=== PATIENT | female | born 1945 | race Caucasian/White ===

== ENCOUNTER 2017-08-08 21:09 | Emergency (ER) | payer OTHER ==
--- NOTE | 2017-08-08 22:03 | RAD REPORT ---
EXAM DESCRIPTION: CT - CTHCSPWOC - 08/08/2017 9:53 pm CLINICAL HISTORY: Trauma, head and neck injury. COMPARISON: None. TECHNIQUE: Axial 5 mm thick images of the head were obtained. Axial 2 mm thick images of the cervical spine were obtained with sagittal and coronal reconstruction images generated and reviewed. All CT scans are performed using dose optimization technique as appropriate and may include automated exposure control or mA/KV adjustment according to patient size. FINDINGS: CT HEAD WITHOUT CONTRAST: No acute hemorrhage, hydrocephalus or extra-axial collection is identified.No areas of brain edema or midline shift. The paranasal sinuses and mastoids are clear.The calvarium is intact. CT CERVICAL SPINE WITHOUT CONTRAST: No fracture or subluxation.3 mm degenerative anterolisthesis noted of C5 on 6.No prevertebral soft ti ssues swelling is identified. Left carotid bulb calcification. IMPRESSION: No acute intracranial or cervical spine findings. Moderate lower cervical degenerative change.
--- NOTE | 2017-08-08 22:23 | RAD REPORT ---
EXAM DESCRIPTION: RAD - Shoulder Left 2 View - 08/08/2017 10:17 pm CLINICAL HISTORY: Fall, shoulder pain COMPARISON: None. FINDINGS: Mildly impacted fracture the proximal left humerus is seen. No dislocation evident.
--- NOTE | 2017-08-08 22:31 | ER ---
Nurse's Notes [facility] Name: Ally Patterson Age: 71 yrs Sex: Female : 1945 Arrival Date: 08/08/2017 Time: 21:13 Bed 4 Private MD: Edgardo Aragon Diagnosis: 2-part nondisplaced fracture of surgical neck of left humerus;Contusion of left eyelid and periocular area Presentation: 08/08 21:14 Presenting complaint: Patient states: Tripped over vacuum at 1730, hitting shoulder and aj left eyebrow on floor. Reports pain 10/10 to shoulder. 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 Care prior to arrival: None. Mechanism of Injury: Fall from standing position. Trauma event details: Injury occurred in the [facility], Injury occurred: at home. Injury occurred: August 08, 2017 Injury occurred at: 17:30. 21:14 Acuity: DEEPAK 3 aj 21:14 Method Of Arrival: Ambulatory 21:19 Transition of care: patient was not received from another setting of care. Onset of symptoms was August 08, 2017. Initial Sepsis Screen: Does the patient meet any 2 criteria? RR > 20 per min. HR > 90 bpm. Yes Does the patient have a suspected source of infection? No. Patient's initial sepsis screen is negative. Historical: - Allergies: 21:20 Codeine; aj 21:20 promethazine HCl; aj - Home Meds: 21:20 Lexapro 10 mg Oral tab 1 tab once daily [Active]; omeprazole 20 mg Oral cpDR 1 cap once aj daily [Active]; losartan oral oral [Active]; - PMHx: 21:20 Tinajero's Esophagus; Depression; aj 22:32 Hypertension; gs - PSHx: 21:20 Hysterectomy; ; Cholecystectomy; Gastric Bypass; Bilateral knee replacement; aj Hernia repair; - Immunization history:: Adult Immunizations up to date. - Social history:: Smoking status: Patient/guardian denies using tobacco. Screenin:21 Abuse screen: Denies threats or abuse. Nutritional screening: No deficits noted. tl2 Tuberculosis screening: No symptoms or risk factors identified. Fall Risk Fall in past 12 months (25 points). Primary Survey: 21:16 A: Airway: patent. Breathing/Chest: Respiratory pattern: regular, Respiratory effort: aj spontaneous, unlabored, Breath sounds: clear, bilaterally. Chest inspection: symmetrical rise and fall of the chest. Circulation: Skin color: pink, Skin temperature: warm, dry. Disability Alert. Assessment: 21:14 General: Appears in no apparent distress. uncomfortable, Behavior is calm, cooperative, aj appropriate for age. 21:16 Pain: Complains of pain in anterior aspect of left shoulder. Neuro: Level of aj Consciousness is awake, alert, obeys commands, Oriented to person, place, time, situation, Appropriate for age. Respiratory: Airway is patent Respiratory effort is even, unlabored, Respiratory pattern is regular, symmetrical. Derm: Skin is intact, is healthy with good turgor, Skin is pink, warm \T\ dry. normal. Musculoskeletal: Circulation, motion, and sensation intact. Range of motion: limited in left shoulder Reports pain in anterior aspect of left shoulder. 21:21 General: Appears in no apparent distress. uncomfortable, Behavior is calm, cooperative, tl2 appropriate for age. Pain: Complains of pain in left shoulder. Neuro: Level of Consciousness is awake, alert, obeys commands, Oriented to person, place, time, situation. Cardiovascular: Denies chest pain. Respiratory: Airway is patent Respiratory effort is even, unlabored, Respiratory pattern is regular, symmetrical. GI: No signs and/or symptoms were reported involving the gastrointestinal system. : No signs and/or symptoms were reported regarding the genitourinary system. Derm: Skin is pink, warm \T\ dry. Bruising that is dark purple, on left eyebrow. Musculoskeletal: Circulation, motion, and sensation intact. Range of motion: limited in left shoulder possible dislocation in left shoulder. 22:10 Reassessment: Pt requested pain medication, MD denied because of ETOH on board. tl2 23:32 Reassessment: Patient appears in no apparent distress at this time. Patient and/or tl2 family updated on plan of care and expected duration. Pain level reassessed. Patient is alert, oriented x 3, equal unlabored respirations, skin warm/dry/pink. Pt verbalized understanding of discharge instructions, need for follow up. Vital Signs: 21:16 BP 177 / 100; Pulse 104; Resp 21; Temp 97.8; Pulse Ox 96% on R/A; Weight 94.35 kg; aj Height 5 ft. 1 in. (154.94 cm); Pain 10/10; 22:10 BP 144 / 88; Pulse 99; Resp 18; Pulse Ox 97% on R/A; tl2 22:37 BP 164 / 93; Pulse 87; Resp 18; Pulse Ox 97% on R/A; tl2 21:16 Body Mass Index 39.30 (94.35 kg, 154.94 cm) aj Cora Coma Score: 21:16 Eye Response: spontaneous(4). Verbal Response: oriented(5). Motor Response: obeys aj commands(6). Total: 15. Trauma Score (Adult): 21:16 Eye Response: spontaneous(1); Verbal Response: oriented(1); Motor Response: obeys aj commands(2); Systolic BP: > 89 mm Hg(4); Respiratory Rate: 10 to 29 per min(4); Cora Score: 15; Trauma Score: 12 ED Course: 21:13 Patient arrived in ED. rg2 21:14 Edgardo Aragon MD is Private Physician. rg2 21:16 Triage completed. aj 21:18 Brooke Gordillo, COLTON is Primary Nurse. tl2 21:20 Arm band placed on left wrist. Patient placed in an exam room. aj 21:21 Jefry Skinner MD is Attending Physician. gs 21:21 Patient has correct armband on for positive identification. Bed in low position. Call tl2 light in reach. Side rails up X2. Adult w/ patient. 21:53 CT Head C Spine In Process Unspecified. EDMS 21:56 CT completed. Patient tolerated procedure well. Patient moved to CT. Patient moved back nj from CT. 22:17 X-ray completed. Portable x-ray completed in exam room. Patient tolerated procedure kc2 well. 22:17 Shoulder Left (2 View) XRAY In Process Unspecified. EDMS 22:29 Aditya Pedro MD is Referral Physician. gs 23:32 No provider procedures requiring assistance completed. Patient did not have IV access tl2 during this emergency room visit. Administered Medications: No medications were administered Outcome: 22:30 Discharge ordered by . gs 23:32 Discharged to home via wheelchair, with family. tl2 23:32 Condition: stable 23:32 Discharge instructions given to patient, family, Instructed on discharge instructions, follow up and referral plans. Demonstrated understanding of instructions, follow-up care. 23:34 Patient left the ED. tl2 Signatures: Dispatcher [employer] EDMS Shanice Moscoso rg2 Courtney Quinonez RN RN aj Carr, Kelsie kc2 Brooke Gordillo RN RN tl2 Vipul Henry Gregory, MD MD gs Corrections: (The following items were deleted from the chart) 21:16 21:14 Trauma Activation: Not Applicable yee fraire
--- NOTE | 2017-08-08 22:31 | EDPHYS ---
Physician Documentation [facility] Name: Ally Patterson Age: 71 yrs Sex: Female : 1945 Arrival Date: 08/08/2017 Time: 21:13 Bed 4 Private MD: Edgardo Aragon ED Physician Jefry Skinner HPI: 08/08 22:25 This 71 yrs old Female presents to ER via Ambulatory with complaints of Fall gs Injury. 22:25 Details of fall: The patient fell from an upright position. Onset: The symptoms/episode gs began/occurred acutely, just prior to arrival. Associated injuries: The patient sustained injury to the head, contusion, hematoma, left shoulder, decreased range of motion, painful injury. Severity of symptoms: At their worst the symptoms were moderate, in the emergency department the symptoms are unchanged. The patient has not experienced similar symptoms in the past. no loc, recent etoh and opiate use. Historical: - Allergies: 21:20 Codeine; aj 21:20 promethazine HCl; aj - Home Meds: 21:20 Lexapro 10 mg Oral tab 1 tab once daily [Active]; omeprazole 20 mg Oral cpDR 1 cap once aj daily [Active]; losartan oral oral [Active]; - PMHx: 21:20 Tinajero's Esophagus; Depression; aj 22:32 Hypertension; gs - PSHx: 21:20 Hysterectomy; ; Cholecystectomy; Gastric Bypass; Bilateral knee replacement; aj Hernia repair; - Immunization history:: Adult Immunizations up to date. - Social history:: Smoking status: Patient/guardian denies using tobacco. ROS: 22:25 All other systems are negative. gs Exam: 22:25 ENT: Nares patent. No nasal discharge, no septal abnormalities noted. Tympanic gs membranes are normal and external auditory canals are clear. Oropharynx with no redness, swelling, or masses, exudates, or evidence of obstruction, uvula midline. Mucous membranes moist. Neck: Trachea midline, no thyromegaly or masses palpated, and no cervical lymphadenopathy. Supple, full range of motion without nuchal rigidity, or vertebral point tenderness. No Meningismus. Chest/axilla: Normal chest wall appearance and motion. Nontender with no deformity. No lesions are appreciated. Cardiovascular: Regular rate and rhythm with a normal S1 and S2. No gallops, murmurs, or rubs. Normal PMI, no JVD. No pulse deficits. Respiratory: Lungs have equal breath sounds bilaterally, clear to auscultation and percussion. No rales, rhonchi or wheezes noted. No increased work of breathing, no retractions or nasal flaring. Abdomen/GI: Soft, non-tender, with normal bowel sounds. No distension or tympany. No guarding or rebound. No evidence of tenderness throughout. Back: No spinal tenderness. No costovertebral tenderness. Full range of motion. Skin: Warm, dry with normal turgor. Normal color with no rashes, no lesions, and no evidence of cellulitis. Neuro: Awake and alert, GCS 15, oriented to person, place, time, and situation. Cranial nerves II-XII grossly intact. Motor strength 5/5 in all extremities. Sensory grossly intact. Cerebellar exam normal. Normal gait. 22:25 Constitutional: The patient appears alert, awake. 22:25 Head/face: Noted is contusion, that is superficial, of the inner aspect of left eyebrow, middle aspect of left eyebrow, outer aspect of left eyebrow and left supraorbital ridge. 22:25 Eyes: Periorbital structures: swelling, ecchymosis, on the inner aspect of left eyebrow, middle aspect of left eyebrow, outer aspect of left eyebrow and left supraorbital ridge, Corneas: are normal, Anterior chamber: normal. 22:25 ENT: Exam is negative for acute changes. 22:25 Neck: C-spine: Nexus Criteria: patient is clinically intoxicated, the patient has a distracting injury. 22:25 Musculoskeletal/extremity: Circulation is intact in all extremities. Joints: the left shoulder displays tenderness. 22:25 Eyes: Extraocular movements: no acute changes. Vital Signs: 21:16 BP 177 / 100; Pulse 104; Resp 21; Temp 97.8; Pulse Ox 96% on R/A; Weight 94.35 kg; aj Height 5 ft. 1 in. (154.94 cm); Pain 10/10; 22:10 BP 144 / 88; Pulse 99; Resp 18; Pulse Ox 97% on R/A; tl2 22:37 BP 164 / 93; Pulse 87; Resp 18; Pulse Ox 97% on R/A; tl2 21:16 Body Mass Index 39.30 (94.35 kg, 154.94 cm) [place] Coma Score: 21:16 Eye Response: spontaneous(4). Verbal Response: oriented(5). Motor Response: obeys aj commands(6). Total: 15. Trauma Score (Adult): 21:16 Eye Response: spontaneous(1); Verbal Response: oriented(1); Motor Response: obeys aj commands(2); Systolic BP: > 89 mm Hg(4); Respiratory Rate: 10 to 29 per min(4); [place] Score: 15; Trauma Score: 12 MDM: 21:23 Patient medically screened. gs 22:25 Differential diagnosis: closed head injury, contusion, fracture. Data reviewed: vital gs signs, nurses notes, radiologic studies. 08/08 21:24 Order name: CT Head C Spine; Complete Time: 22:24 08/08 21:24 Order name: Shoulder Left (2 View) XRAY; Complete Time: 22:24 08/08 22:32 Order name: Sling; Complete Time: 23:05 gs Administered Medications: No medications were administered Disposition: 08/08/17 22:30 Discharged to Home. Impression: 2-part nondisplaced fracture of surgical neck of left humerus, Contusion of left eyelid and periocular area. - Condition is Stable. - Discharge Instructions: Facial or Scalp Contusion, Humerus Fracture, Treated with Immobilization. - Medication Reconciliation Form, Thank You Letter, Antibiotic Education, Prescription Opioid Use form. - Follow up: Aditya Pedro MD; When: 2 - 3 days; Reason: Re-evaluation by your physician. Signatures: Dispatcher [employer] Courtney Arias RN RN aj Knox, Taylor, RN RN tl2 Jefry Skinner MD MD
[2017-08-08 23:38] VITALS: TEMP 97.8
[2017-08-08 23:39] VITALS: O2SAT 97
[2017-08-08 23:40] VITALS: BP 164/93
== END 2017-08-08 23:34 | disposition home or self-care (01) ==
LOC: ER 21:09
DX: S42.225A 2-part nondisplaced fracture of surgical neck of left humerus, initial encounter for closed fracture (principal); W19.XXXA Unspecified fall, initial encounter; Y93.9 Activity, unspecified; Y92.9 Unspecified place or not applicable; Z88.5 Allergy status to narcotic agent; Z88.8 Allergy status to other drugs, medicaments and biological substances; I10 Essential (primary) hypertension; F32.9 Major depressive disorder, single episode, unspecified
CPT/HCPCS: 70450; 72125; 99284

== ENCOUNTER 2019-03-24 08:44 | Inpatient (IN) | payer OTHER ==
[2019-03-24] MEDS ORDERED: IPRATROPIUM BROM 0.5MG/2.5ML ONE (09:30)
[2019-03-24] MEDS ORDERED: LEVALBUTEROL 1.25 MG/3 ML NEB ONE (09:31)
--- NOTE | 2019-03-24 10:58 | RAD REPORT ---
EXAM DESCRIPTION: RAD - Chest Pa And Lat (2 Views) - 03/24/2019 9:48 am CLINICAL HISTORY: COUGH Chest pain. COMPARISON: Chest Single View dated 03/05/2016; Chest Pa And Lat (2 Views) dated 03/03/2016; CHEST S EMILIA VIEW dated 09/10/2014; CHEST SINGLE VIEW dated 09/09/2014 FINDINGS: Emphysematous changes are present with moderate pulmonary opacity noted in the right lower lung, favored to represent pneumonia. However, follow-up imaging would be recommended after appropri ate therapy to ensure complete clearance and exclude underlying mass. Small opacity in the left parah ilar region and left medial lung base probably represents atelectasis. The heart is upper limit manuel l in size.
[2019-03-24] MEDS ORDERED: NA CHLORIDE 0.9% 500 ML ONE ×2 (11:17→14:49)
[2019-03-24] MEDS ORDERED: METHYLPREDNISOLONE 125 MG INJ ONE (11:17)
[2019-03-24] MEDS ORDERED: Levofloxacin 750mg IV 750 MG/150 ML BAG IV ONE (11:17)
[2019-03-24 11:57] LABS: Absolute Lymphocytes (CBC) 2.1 K/uL (0.7-4.9); Basophils % 0.4 % (0-1.3); Hematocrit 31.7 % (36.0-45.0); Lymphocytes % 18.4 % (15.3-44.8); MPV 8.2 fL (7.6-11.3); RBC Red Blood Cell Count 3.34 M/uL (3.86-4.86)
[2019-03-24 12:31] LABS: BUN Blood Urea Nitrogen 3 mg/dL (7-18); Bicarbonate 27 mmol/L (21-32); Glucose Level 131 mg/dL (74-106); Sodium Level 139 mmol/L (136-145)
[2019-03-24 12:32] LABS: Potassium 2.7 mmol/L (3.5-5.1)
--- NOTE | 2019-03-24 12:48 | ER ---
Nurse's Notes [facility] Name: Ally Patterson Age: 73 yrs Sex: Female : 1945 Arrival Date: 03/24/2019 Time: 08:46 Bed 19 Private MD: Edgardo Aragon Diagnosis: Pneumonia in diseases classified elsewhere;Hypokalemia;Dyspnea Presentation: 03/24 08:59 Presenting complaint: Patient states: Sent by urgent care for further evaluation of low ss O2 (94%). Pt c/o generalized body aches, runny nose, nasal and chest congestion and cough x 4 days. Transition of care: patient was not received from another setting of care. Onset of symptoms was March 20, 2019. Risk Assessment: Do you want to hurt yourself or someone else? Patient reports no desire to harm self or others. Initial Sepsis Screen: Does the patient meet any 2 criteria? HR > 90 bpm. Does the patient have a suspected source of infection? No. Patient's initial sepsis screen is negative. Care prior to arrival: None. 08:59 Method Of Arrival: Ambulatory ss 08:59 Acuity: DEEPAK 3 ss Triage Assessment: 09:15 Respiratory: Onset: The symptoms/episode began/occurred 4 days ago. 09:15 Respiratory: the patient has mild shortness of breath. wh Historical: - Allergies: 09:02 Codeine; ss 09:02 promethazine HCl; ss - PMHx: 09:02 Tinajero's Esophagus; Depression; Hypertension; ss - PSHx: 09:02 Hysterectomy; ; Cholecystectomy; Bilateral knee replacement; Gastric Bypass; ss Hernia repair; - Immunization history:: Flu vaccine is not up to date. - Social history:: Smoking status: Patient/guardian denies using tobacco. - Ebola Screening: : Patient denies exposure to infectious person Patient denies travel to an Ebola-affected area in the 21 days before illness onset. Screenin:15 Abuse screen: Denies threats or abuse. Denies injuries from another. Nutritional wh screening: No deficits noted. Tuberculosis screening: No symptoms or risk factors identified. Fall Risk None identified. Assessment: 09:15 General: Appears in no apparent distress. Behavior is calm, cooperative, appropriate wh for age. Pain: Denies pain. Neuro: Level of Consciousness is awake, alert, obeys commands, Oriented to person, place, time, situation, Appropriate for age. Cardiovascular: Heart tones S1 S2 Rhythm is regular. Respiratory: Reports cough that is congestion Airway is patent Respiratory effort is even, unlabored, Respiratory pattern is regular, symmetrical, Breath sounds are clear bilaterally. GI: Abdomen is flat, non-distended. : No signs and/or symptoms were reported regarding the genitourinary system. EENT: Throat is pink. Derm: Skin is intact, is healthy with good turgor, Skin is pink, warm \T\ dry. normal. Musculoskeletal: Circulation, motion, and sensation intact. 10:18 Reassessment: Patient appears in no apparent distress at this time. No changes from previously documented assessment. Patient and/or family updated on plan of care and expected duration. Pain level reassessed. Patient is alert, oriented x 3, equal unlabored respirations, skin warm/dry/pink. 11:24 Reassessment: Patient appears in no apparent distress at this time. No changes from previously documented assessment. Patient and/or family updated on plan of care and expected duration. Pain level reassessed. Patient is alert, oriented x 3, equal unlabored respirations, skin warm/dry/pink. Patient denies pain at this time. 12:33 Reassessment: Felipe Serna LAND ECONOMIST notified of critical lab value 2.7. 12:40 Reassessment: Patient appears in no apparent distress at this time. No changes from previously documented assessment. Patient and/or family updated on plan of care and expected duration. Pain level reassessed. Patient is alert, oriented x 3, equal unlabored respirations, skin warm/dry/pink. Patient denies pain at this time. 14:21 Reassessment: Patient appears in no apparent distress at this time. No changes from previously documented assessment. Patient and/or family updated on plan of care and expected duration. Pain level reassessed. Patient is alert, oriented x 3, equal unlabored respirations, skin warm/dry/pink. Patient denies pain at this time. Vital Signs: 08:59 BP 156 / 93; Pulse 103; Resp 20; Temp 98.7(O); Pulse Ox 97% on R/A; Weight 113.4 kg; ss Height 5 ft. 1 in. (154.94 cm); Pain 8/10; 10:20 BP 124 / 82; Pulse 110; Resp 18; Pulse Ox 000% on R/A; wh 11:19 BP 150 / 85; Pulse 117; Resp 20; Temp 98.9(O); Pulse Ox 92% ; mh5 12:28 BP 153 / 84; Pulse 109; Resp 20; Temp 98.9; Pulse Ox 92% on R/A; mh5 14:21 BP 132 / 84; Pulse 101; Resp 18; Pulse Ox 92% on R/A; wh 08:59 Body Mass Index 47.24 (113.40 kg, 154.94 cm) ss ED Course: 08:46 Patient arrived in ED. rg4 08:48 Edgardo Aragon MD is Private Physician. rg4 09:01 Triage completed. ss 09:02 Arm band placed on left wrist. ss 09:06 Tyrone Melendrez is Primary Nurse. wh 09:10 Felipe Serna FNP-C [facility]. la1 09:10 Winston Sotelo MD is Attending Physician. la1 09:15 Patient has correct armband on for positive identification. Placed in gown. Bed in low wh position. Call light in reach. Side rails up X 1. Pulse ox on. NIBP on. 09:47 Chest Pa And Lat (2 Views) XRAY In Process Unspecified. EDMS 11:00 Initial lab(s) drawn, by me, sent to lab. First set of blood cultures drawn. Missed mh5 attempt(s): 20 gauge in right antecubital area. 11:14 Warm blanket given. mh5 11:15 Blood Culture Adult (2) Sent. mh5 11:15 Procalcitonin Sent. mh5 11:15 BMP Sent. mh5 11:15 Lactate Sent. mh5 11:15 CBC with Diff Sent. mh5 11:21 Inserted saline lock: 22 gauge in left antecubital area, using aseptic technique. Blood ss collected. 12:45 Edgardo Aragon MD is Hospitalizing Provider. la1 13:10 EKG done, by endoscopy tech. reviewed by Felipe WILKINS. at1 14:22 No provider procedures requiring assistance completed. Patient admitted, IV remains in wh place. Administered Medications: 09:38 Drug: Xopenex (3) 1.25 mg Route: Inhalation; wh 10:18 Follow up: Response: No adverse reaction wh 09:38 Drug: AtroVENT Aerosol 0.5 mg Route: Inhalation; 10:19 Follow up: Response: No adverse reaction 11:18 Drug: NS 0.9% 500 ml Route: IV; Rate: bolus; Site: left antecubital; 14:23 Follow up: Response: No adverse reaction; IV Status: Completed infusion 11:20 Drug: SOLU-Medrol 125 mg Route: IVP; Site: left antecubital; 14:23 Follow up: Response: No adverse reaction 11:22 Drug: LevaQUIN 750 mg Volume: 150 ml; Route: IVPB; Infused Over: 90 mins; Site: left antecubital; 14:23 Follow up: Response: No adverse reaction; IV Status: Completed infusion 12:58 Drug: Potassium Chloride 20 mEq Route: IV; Rate: calculated rate; Site: left antecubital; 14:24 Follow up: Response: No adverse reaction; IV Status: Completed infusion 12:58 Drug: Potassium Effervescent Tablet 50 mEq Route: PO; 14:24 Follow up: Response: No adverse reaction Outcome: 12:47 Decision to Hospitalize by Provider. de1 14:22 Admitted to Tele accompanied by tech, family with patient, via wheelchair, room 413, with chart, Report called to Alecia De Guzman RN 14:22 Condition: stable 14:22 Instructed on the need for admit. 14:24 Patient left the ED. Signatures: Dispatcher [employer] Nella Baum RN RN ss Gonzales, Amanda, forestry hunter EKG Tat1 Felipe Serna FNP-C MOTOR GRADER OPERATOR-[facility]1 Johana Kumari4 Clari Barker [facility] Tyrone Melendrez Corrections: (The following items were deleted from the chart) 09:37 09:36 AtroVENT Aerosol 0.5 mg Inhalation de1 09:38 09:36 Xopenex (3) 1.25 mg Inhalation [facility]
--- NOTE | 2019-03-24 12:48 | EDPHYS ---
Physician Documentation [facility] Name: Ally Patterson Age: 73 yrs Sex: Female : 1945 Arrival Date: 03/24/2019 Time: 08:46 Bed 19 Private MD: Edgardo Aragon ED Physician Winston Sotelo HPI: 03/24 09:34 This 73 yrs old Female presents to ER via Ambulatory with complaints of la1 Breathing Difficulty, Congestion, Headache. 09:34 The patient has shortness of breath at rest, with light activity. Onset: The la1 symptoms/episode began/occurred 5 day(s) ago. Duration: The symptoms are continuous. The patient's shortness of breath is aggravated by coughing, is alleviated by elevating head. Associated signs and symptoms: Pertinent positives: non-productive cough, Pertinent negatives: chest pain, fever, hemoptysis, visual changes, vomiting. Severity of symptoms: At their worst the symptoms were mild. The patient has not experienced similar symptoms in the past. pt reports cough, congestion, headache, body aches since last , ill with similar symptoms, was seen at urgent care and sent here because her 02 sats were 94%. Historical: - Allergies: 09:02 Codeine; ss 09:02 promethazine HCl; ss - PMHx: 09:02 Tinajero's Esophagus; Depression; Hypertension; ss - PSHx: 09:02 Hysterectomy; ; Cholecystectomy; Bilateral knee replacement; Gastric Bypass; ss Hernia repair; - Immunization history:: Flu vaccine is not up to date. - Social history:: Smoking status: Patient/guardian denies using tobacco. - Ebola Screening: : Patient denies exposure to infectious person Patient denies travel to an Ebola-affected area in the 21 days before illness onset. ROS: 09:35 Constitutional: Negative for fever, chills, and weight loss, Eyes: Negative for injury, la1 pain, redness, and discharge, ENT: Negative for injury, pain, and discharge, Neck: Negative for injury, pain, and swelling, Cardiovascular: Negative for chest pain, palpitations, and edema. 09:35 Abdomen/GI: Negative for abdominal pain, nausea, vomiting, diarrhea, and constipation, Back: Negative for injury and pain, MS/Extremity: Negative for injury and deformity. 09:35 Respiratory: Positive for cough, wheezing. 09:35 Neuro: Positive for headache, Negative for altered mental status, dizziness, gait disturbance, hearing loss, loss of consciousness, numbness, tingling, acute changes. Exam: 09:36 Constitutional: This is a well developed, well nourished patient who is awake, alert, la1 and in no acute distress. Head/Face: Normocephalic, atraumatic. Eyes: Pupils equal round and reactive to light, extra-ocular motions intact. Periorbital areas with no swelling, redness, or edema. ENT: Nares patent. No nasal discharge, no septal abnormalities noted. Tympanic membranes are normal and external auditory canals are clear. Oropharynx with no redness, swelling, or masses, exudates, or evidence of obstruction, uvula midline. Mucous membranes moist. Neck: Trachea midline, no cervical lymphadenopathy. Supple, full range of motion without nuchal rigidity, or vertebral point tenderness. No Meningismus. Chest/axilla: Normal chest wall appearance and motion. Nontender with no deformity. No lesions are appreciated. Cardiovascular: Regular rate and rhythm with a normal S1 and S2. No gallops, murmurs, or rubs. Normal PMI, no JVD. No pulse deficits. 09:36 Abdomen/GI: Soft, non-tender, with normal bowel sounds. No distension or tympany. No guarding or rebound. No evidence of tenderness throughout. Back: No spinal tenderness. No costovertebral tenderness. Full range of motion. Neuro: Awake and alert, GCS 15, oriented to person, place, time, and situation. Normal gait. 09:36 Respiratory: mild respiratory distress is noted, Respirations: asymmetrical chest movement, that is mild, tachypnea, that is mild, Breath sounds: rhonchi, wheezing: expiratory that is mild, is scattered, is heard diffusely. 13:09 ECG was reviewed by the Attending Physician. la1 Vital Signs: 08:59 BP 156 / 93; Pulse 103; Resp 20; Temp 98.7(O); Pulse Ox 97% on R/A; Weight 113.4 kg; ss Height 5 ft. 1 in. (154.94 cm); Pain 8/10; 10:20 BP 124 / 82; Pulse 110; Resp 18; Pulse Ox 000% on R/A; wh 11:19 BP 150 / 85; Pulse 117; Resp 20; Temp 98.9(O); Pulse Ox 92% ; mh5 12:28 BP 153 / 84; Pulse 109; Resp 20; Temp 98.9; Pulse Ox 92% on R/A; mh5 14:21 BP 132 / 84; Pulse 101; Resp 18; Pulse Ox 92% on R/A; wh 08:59 Body Mass Index 47.24 (113.40 kg, 154.94 cm) ss MDM: 09:10 Patient medically screened. la1 10:45 ED course: Pt is is tachycardic with sats in the low 90s after breathing treatments. la1 12:43 Differential diagnosis: Bronchitis Chronic Obstructive Pulmonary Disease pneumonia, la1 pulmonary edema. Data reviewed: vital signs, nurses notes, lab test result(s), radiologic studies, I have discussed the patient's presentation/case with the attending Emergency Department Physician; and as a result, I will admit patient. Data interpreted: Pulse oximetry: on room air is 92 %. Interpretation: acceptable. Counseling: I had a detailed discussion with the patient and/or guardian regarding: the historical points, exam findings, and any diagnostic results supporting the discharge/admit diagnosis, lab results, radiology results, the need for further work-up and treatment in the hospital. Physician consultation: Edgardo Aragon MD was called at 12:45, was contacted at 12:45, regarding admission. 03/24 09:18 Order name: Flu; Complete Time: 11:02 sc03/24 10:36 Order name: CBC with Diff; Complete Time: 12:04 03/24 10:36 Order name: BMP; Complete Time: 12:34 03/24 10:36 Order name: Procalcitonin la03/24 10:36 Order name: Blood Culture Adult (2) la 03/24 10:36 Order name: Lactate; Complete Time: 12:27 la03/24 09:18 Order name: Chest Pa And Lat (2 Views) XRAY; Complete Time: 11:02 la03/24 10:37 Order name: Saline Lock; Complete Time: 11:12 03/24 12:45 Order name: EKG; Complete Time: 12:46 la03/24 12:45 Order name: EKG - Nurse/Tech; Complete Time: 12:59 la1 EC:09 Rate is 110 beats/min. Rhythm is regular. QRS [place] is Normal. [place] interval is normal. la1 QRS interval is normal. T waves are Normal. No ST changes noted. Reviewed by me. Administered Medications: 09:38 Drug: Xopenex (3) 1.25 mg Route: Inhalation; 10:18 Follow up: Response: No adverse reaction 09:38 Drug: AtroVENT Aerosol 0.5 mg Route: Inhalation; 10:19 Follow up: Response: No adverse reaction 11:18 Drug: NS 0.9% 500 ml Route: IV; Rate: bolus; Site: left antecubital; 14:23 Follow up: Response: No adverse reaction; IV Status: Completed infusion 11:20 Drug: SOLU-Medrol 125 mg Route: IVP; Site: left antecubital; 14:23 Follow up: Response: No adverse reaction 11:22 Drug: LevaQUIN 750 mg Volume: 150 ml; Route: IVPB; Infused Over: 90 mins; Site: left antecubital; 14:23 Follow up: Response: No adverse reaction; IV Status: Completed infusion 12:58 Drug: Potassium Chloride 20 mEq Route: IV; Rate: calculated rate; Site: left antecubital; 14:24 Follow up: Response: No adverse reaction; IV Status: Completed infusion 12:58 Drug: Potassium Effervescent Tablet 50 mEq Route: PO; 14:24 Follow up: Response: No adverse reaction Disposition: 15:24 Co-signature as Attending Physician, Winston Sotelo MD. rn Disposition: 03/24/19 12:47 Hospitalization ordered by Edgardo Aragon for Observation. Preliminary diagnosis are Pneumonia in diseases classified elsewhere, Hypokalemia, Dyspnea. - Bed requested for Telemetry/MedSurg (observation). - Status is Observation. wh - Condition is Stable. - Problem is new. - Symptoms are unchanged. UTI on Admission? No Signatures: Dispatcher [employer] Vanessa Frias RN RN dw Nieto, Roman, MD MD rn Smirch, Shelby, RN RN ss Daphne, Felipe, SEXER-C SEXER-Cla1 Tyrone Melendrez Corrections: (The following items were deleted from the chart) 13:32 12:47 Hospitalization Ordered by Edgardo Aragon MD for Observation. Preliminary dw diagnosis is Pneumonia in diseases classified elsewhere; Hypokalemia; Dyspnea. Bed requested for Telemetry/MedSurg (observation). Status is Observation. Condition is Stable. Problem is new. Symptoms are unchanged. UTI on Admission? No. la1 14:24 13:32 03/24/2019 12:47 Hospitalization Ordered by Edgardo Aragon MD for Observation. wh Preliminary diagnosis is Pneumonia in diseases classified elsewhere; Hypokalemia; Dyspnea. Bed requested for Telemetry/MedSurg (observation). Status is Observation. Condition is Stable. Problem is new. Symptoms are unchanged. UTI on Admission? No. dw
[2019-03-24] MEDS ORDERED: KCL 20 MEQ/100 mL IVPB 20 MEQ/100 ML BAG IV ONE (12:55)
[2019-03-24] MEDS ORDERED: POTASSIUM 25 MEQ EFFERV TAB ONE (12:55)
[2019-03-24] MEDS ORDERED: ONDANSETRON 4 MG/2 ML VIAL IV PRN (14:37)
[2019-03-24] MEDS: ALBUTEROL 2.5 MG/3 ML NEB SOL NEB SCH ×3 (15:39→23:40)
[2019-03-24] MEDS: IPRATROPIUM BROM 0.5MG/2.5ML NEB SCH ×3 (15:39→23:40)
[2019-03-24 16:06] VITALS: BMI 47.2
[2019-03-24] MEDS ORDERED: DOCUSATE SODIUM PO PRN (18:21)
[2019-03-24] MEDS ORDERED: POTASSIUM CL SA 10 MEQ TAB PO ONE (19:28)
[2019-03-24] MEDS: ESCITALOPRAM 20 MG TAB PO SCH (20:50)
[2019-03-24] MEDS: DOCUSATE NA 100 MG CAP PO PRN (20:52)
[2019-03-24] MEDS ORDERED: HOME MED 1 EA UNK (Escitalopram Oxalate [Lexapro] 10 MG) PO SCH (21:00)
--- NOTE | 2019-03-24 23:52 | PN ---
Date of Progress Note: 03/24/2019 Subjective: Patient feels somewhat better tonight. States the cough is still tight. Has difficulty coughing anything up. Still has dyspnea with minimal exertion. Will continue with nebulizing treat ment and repeat white count in the morning and plan on keeping for 24-48 hours and repeat a chest x-r ay. Depending on the results, plan on her disposition. HR/MODL Voice ID: [id number] Report ID: [id number]
--- NOTE | 2019-03-25 00:14 | HP ---
Date of Admission: 03/24/2019 Chief Complaint: General malaise, cough, shortness of breath. History Of Present Illness: The patient dates her illness back 3 or 4 days when she thought she was developing some allergies to the weather change, started with some sinus drainage and sore throat, pr ogressed on her lungs, became increasingly dyspneic, had trouble coughing anything up, felt while bad enough to come to the emergency room where the diagnosis of pneumonia was made, slight elevation whi te count, admitted for more aggressive treatment. Past History: The patient had pneumonia a number of years ago secondary she says to aspiration from her GERD. She states her diet has been somewhat skewed lately as she has been on fruit and vegetable s and keto diet with minimal weight loss. However, she states she has been increasingly fatigued. S he noted this well before this illness. She has seen Cardiology in the past and this perhaps would r equire further workup depending on her response to pneumonitis. Family History: Noncontributory. Social History: Nonsmoker, nondrinker. Physical Examination: General: Patient is a rather obese elderly female with stable vital signs. Has dry hacking cough. Head and Neck: Normocephalic. Pupils equal, reactive to light and accommodation. Fundi negative. Tr achea midline. Thyroid not palpable. ENT: Negative. Chest: High-pitched rhonchi bilaterally. Occasional rales of left lower lobe. Adequate air entry an d movement. No use of accessory muscles. Cardiovascular: PMI midclavicular line. Heart: Sounds normal. Peripheral pulses present and equal bilaterally. Abdomen: No organomegaly. Bowel sounds present. Extremities: Moderately dehydrated. Good tone and movement bilaterally. Reflexes: Physiologic. Rectal-Pelvic: Deferred. Impression: Pneumonitis, dehydration. Plan: Patient will be admitted and will be hydrated. Potassium correction will be made and placed o n IV antibiotics. HR/MODL Voice ID: [id number]
[2019-03-25] MEDS: IPRATROPIUM BROM 0.5MG/2.5ML NEB SCH ×6 (03:30→23:40)
[2019-03-25] MEDS: ALBUTEROL 2.5 MG/3 ML NEB SOL NEB SCH ×6 (03:30→23:40)
[2019-03-25 05:56] LABS: Urine Appearance CLEAR; Urine Bilirubin NEGATIVE (NEG); Urine Blood NEGATIVE (NEG); Urine Color YELLOW; Urine Glucose 3+ (NEG); Urine Protein NEGATIVE (NEG); Urine Specific Gravity >=1.030 (1.005-1.030); Urine Urobilinogen 0.2 mg/dL (0.2-1.0)
[2019-03-25 06:11] LABS: Urine Bacteria <20 /HPF (<20); Urine Culture Reflex Order NOT NEEDED; Urine RBC <5 /HPF (NONE SEEN)
[2019-03-25 06:20] LABS: Absolute Lymphocytes (CBC) 1.2 K/uL (0.7-4.9); Basophils % 0.2 % (0-1.3); Hematocrit 32.4 % (36.0-45.0); Lymphocytes % 9.8 % (15.3-44.8); MPV 8.5 fL (7.6-11.3); RBC Red Blood Cell Count 3.38 M/uL (3.86-4.86)
--- NOTE | 2019-03-25 06:21 | EKG ---
Test Date: 2019-03-24 Test Time: 12:57:50 Package Sealer Machine: STELLA MEASUREMENT RESULTS: Intervals: Rate: 110 TN: 154 QRSD: 76 QT: 354 QTc: 479 [place]: P: 0 TN: 154 QRS: 32 T: 25 INTERPRETIVE STATEMENTS: Sinus tachycardia Otherwise normal ECG Compared to ECG 03/03/2016 20:58:51 No significant changes Electronically Signed On 03-25-19 06:20:51 MEDICAL STENOGRAPHER by Chi He
[2019-03-25 06:33] LABS: BUN Blood Urea Nitrogen 8 mg/dL (7-18); Bicarbonate 28 mmol/L (21-32); Glucose Level 213 mg/dL (74-106); NT PRO-BNP 354 pg/mL (<125); Potassium 3.8 mmol/L (3.5-5.1); Sodium Level 139 mmol/L (136-145)
[2019-03-25] MEDS: GUAIFENESIN 600 MG SA TAB PO SCH (09:00)
[2019-03-25] MEDS ORDERED: POTASSIUM CL SA 10 MEQ TAB PO ONE (09:00)
[2019-03-25] MEDS ORDERED: LOSARTAN PO SCH (09:00)
[2019-03-25] MEDS ORDERED: [UNRECOGNIZED DRUG - OTHER] PO SCH (09:00)
[2019-03-25] MEDS ORDERED: HYDROCHLOROTHIAZIDE PO SCH (09:00)
[2019-03-25] MEDS ORDERED: HOME MED 1 EA UNK (Omeprazole [Prilosec] 40 MG) PO SCH (09:00)
[2019-03-25] MEDS: LORATADINE 10 MG TAB PO SCH (09:00)
[2019-03-25] MEDS: Levofloxacin500mg IV 500 MG/100 ML BAG IV SCH (09:47)
[2019-03-25] MEDS: VITAMIN D 5,000 UNIT CAP PO SCH (09:50)
[2019-03-25] MEDS: LOSARTAN POTASSIUM 50 MG TABLET PO SCH (09:51)
[2019-03-25] MEDS: PANTOPRAZOLE 40MG TABLET PO SCH (09:58)
[2019-03-25] MEDS: LOSARTAN/HCTZ 50-12.5 PO SCH (09:58)
[2019-03-25] MEDS: DOCUSATE NA 100 MG CAP PO PRN (09:59)
[2019-03-25] MEDS: ESCITALOPRAM 20 MG TAB PO SCH (21:34)
--- NOTE | 2019-03-26 00:12 | PN ---
Date of Progress Note: 03/25/2019 The patient states she feels somewhat better today. Her cough is much looser, still nonproductive. She continues on inhalation therapy [id number] and her appetite has improved. Blood sugar was addressed as well and some dietary controls including carbs and including alcohol intake was also dis cussed. The chest x-ray will be repeated likely. HR/MODL Voice ID: [id number] Report ID: [id number]
[2019-03-26] MEDS: ALBUTEROL 2.5 MG/3 ML NEB SOL NEB SCH ×3 (03:45→13:02)
[2019-03-26] MEDS: IPRATROPIUM BROM 0.5MG/2.5ML NEB SCH ×3 (03:45→13:02)
[2019-03-26 06:39] LABS: Basophils % 0.8 % (0-1.3); Lymphocytes % 29.7 % (15.3-44.8); MPV 8.6 fL (7.6-11.3); RBC Red Blood Cell Count 3.21 M/uL (3.86-4.86)
[2019-03-26 06:53] LABS: BUN Blood Urea Nitrogen 11 mg/dL (7-18); Bicarbonate 29 mmol/L (21-32); Glucose Level 103 mg/dL (74-106); Sodium Level 141 mmol/L (136-145)
[2019-03-26] MEDS: Levofloxacin500mg IV 500 MG/100 ML BAG IV SCH (08:41)
[2019-03-26] MEDS: LOSARTAN/HCTZ 50-12.5 PO SCH (08:42)
[2019-03-26] MEDS: GUAIFENESIN 600 MG SA TAB PO SCH (08:43)
[2019-03-26] MEDS: VITAMIN D 5,000 UNIT CAP PO SCH (08:43)
[2019-03-26] MEDS: LOSARTAN POTASSIUM 50 MG TABLET PO SCH (08:43)
[2019-03-26] MEDS: LORATADINE 10 MG TAB PO SCH (08:44)
[2019-03-26] MEDS: PANTOPRAZOLE 40MG TABLET PO SCH (08:44)
--- NOTE | 2019-03-26 11:27 | RAD REPORT ---
EXAM DESCRIPTION: Jent Pa And Lat (2 Views)03/26/2019 11:06 am CLINICAL HISTORY: Cough COMPARISON: March 24, 2019 FINDINGS: The right basilar opacity has partially resolved. Mild left lung opacities are unchanged. The heart remains enlarged. Small to moderate hiatal hernia IMPRESSION: Partial resolution in a right basilar opacity probably pneumonia
[2019-03-26 12:27] VITALS: BP 115/65; TEMP 97.6
[2019-03-26 13:27] VITALS: O2SAT 95
--- NOTE | 2019-03-26 19:13 | PN ---
Date of Progress Note: 03/26/2019 The patient continues to improve both clinically and symptomatically. She states her appetite is bet ter. She has more strength. The cough is subsided. Chest x-ray did show some improvement. She can be discharged to continue on inhalation therapy and Levaquin. Followup next week with me. Blood negron gars were upper limits of normal. The patient advised in the diet. HR/MODL Voice ID: [id number] Report ID: [id number]
== END 2019-03-26 14:39 | disposition home or self-care (01) | DRG 194 ==
LOC: ER 08:44 → ERHOLD 12:49 → 4TH 14:16 → OBSVTOIN 03-26 08:24
PROVIDERS: ADMIT Family Medicine; ATTEND Family Medicine
DX: J18.9 Pneumonia, unspecified organism (principal); Z68.42 Body mass index [BMI] 45.0-49.9, adult; E86.0 Dehydration; E66.9 Obesity, unspecified
CPT/HCPCS: 36415; 71046; 80048; 81001; 82947; 83605; 83880; 84132; 84145; 84484; 85025; 87040; 87804; 93005; 94640; 94760; 96365; 96366; 96368; 96375; 99285; G0378; J2930; J7040

== ENCOUNTER → 2020-07-13 | Day surgery (SDC) | payer OTHER ==
[~2020-07-13] MED LIST: Ringers Lactate 1,000 ML IV ONE
--- NOTE | 2020-07-13 13:34 | RAD REPORT ---
EXAM DESCRIPTION: US - Breast Core BX w/US Guidance - 07/13/2020 10:31 am CLINICAL HISTORY: ICD N63.20 COMPARISON: July 05, 2020 ultrasound TECHNIQUE: The risks, benefits alternatives to the procedure were explained to the patient and infor med consent obtained. Skin and subcutaneous tissues anesthetized with lidocaine. Under sonographic guidance, two 14 gauge vacuum assisted core biopsies of the 8 millimeter mass withi n the outer periareolar left breast obtained. 2 centimeter specimens taken. Materials given to pathology. The post biopsy images demonstrated ill-defined fluid in the region of the small left breast mass. Th e mass was not clearly seen. A localizing clip was placed in the vicinity of the prior location of th e mass. Patient experienced no immediate complication IMPRESSION: Vacuum assisted core biopsies of the left breast mass
== END ==
LOC: DS 10:30
PROVIDERS: ATTEND Family Medicine
DX: N63.20 Unspecified lump in the left breast, unspecified quadrant (principal)
CPT/HCPCS: 19083; 88305; J7120

== ENCOUNTER 2021-03-06 17:07 | Emergency (ER) | payer OTHER ==
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
--- NOTE | 2021-03-06 19:09 | RAD REPORT ---
EXAM DESCRIPTION: Shoulder Right 2 View - 03/06/2021 6:31 pm CLINICAL HISTORY: PAIN COMPARISON: No comparisons TECHNIQUE: Internal and external rotation views of the right shoulder were obtained. FINDINGS: There is no fracture or dislocation. AC joint degenerative changes are present with infer iorly directed clavicle and acromion spurring. This slightly narrows the acromial humeral joint space . No abnormal soft tissue calcifications. No pathologic bone changes identifiable. IMPRESSION: AC joint degenerative change with no acute right shoulder finding.
[2021-03-06 19:33] VITALS: TEMP 98.5
[2021-03-06 19:34] VITALS: BP 142/74; O2SAT 97
== END 2021-03-06 19:26 | disposition home or self-care (01) ==
LOC: ER 17:07
DX: S51.811A Laceration without foreign body of right forearm, initial encounter (principal); S00.90XA Unspecified superficial injury of unspecified part of head, initial encounter; S40.011A Contusion of right shoulder, initial encounter; W05.1XXA Fall from non-moving nonmotorized scooter, initial encounter; I10 Essential (primary) hypertension; F32.A Depression, unspecified; Z88.5 Allergy status to narcotic agent; Z88.8 Allergy status to other drugs, medicaments and biological substances
CPT/HCPCS: 70450; 99283